=== PATIENT | male | born 1985 | race Caucasian/White ===

== ENCOUNTER 2018-05-06 00:41 | Emergency (ER) | payer OTHER ==
[~2018-05-06] VITALS: Ht 177.8 cm; Wt 88.5 kg
[2018-05-06 02:11] VITALS: BP 128/78
== END 2018-05-06 02:12 | disposition home or self-care (01) ==
LOC: M.ERS 00:41
DX: S91.011A Laceration without foreign body, right ankle, initial encounter (principal); Z88.0 Allergy status to penicillin; Z88.8 Allergy status to other drugs, medicaments and biological substances; W45.8XXA Other foreign body or object entering through skin, initial encounter; Y93.89 Activity, other specified; Y92.89 Other specified places as the place of occurrence of the external cause; Y99.8 Other external cause status

== ENCOUNTER 2019-03-24 21:35 | Emergency (ER) | payer OTHER ==
[~2019-03-24] VITALS: Ht 177.8 cm; Wt 93.0 kg
[2019-03-24] MEDS ORDERED: ZPAK PO (22:00)
[2019-03-24] MEDS ORDERED: PROMETHAZINE V120 ML PO (22:00)
[2019-03-24] MEDS ORDERED: TESSALON PERLE100 MG PO (22:00)
[2019-03-24] MEDS ORDERED: ACETAMINOPHEN-1 EAC1 PO (22:00)
[2019-03-24 22:13] VITALS: BP 117/69
== END 2019-03-24 22:16 | disposition home or self-care (01) ==
LOC: M.ERS 21:35
DX: J20.9 Acute bronchitis, unspecified (principal); Z88.0 Allergy status to penicillin; Z88.1 Allergy status to other antibiotic agents; Z88.8 Allergy status to other drugs, medicaments and biological substances

== ENCOUNTER 2019-05-12 13:26 | Emergency (ER) | payer OTHER ==
[~2019-05-12] VITALS: Ht 180.3 cm; Wt 93.0 kg
[~2019-05-12 13:26] MED LIST: ACETAMINOPHEN-1 EAC1 PO; PROMETHAZINE V120 ML PO; TESSALON PERLE100 MG PO; ZPAK PO
[2019-05-12] MEDS ORDERED: NORCO 5-325 TA1 EAC1 PO (14:50)
[2019-05-12 15:02] VITALS: BP 116/85
== END 2019-05-12 15:00 | disposition home or self-care (01) ==
LOC: M.ERS 13:26
DX: S20.211A Contusion of right front wall of thorax, initial encounter (principal); Z98.890 Other specified postprocedural states; Z88.1 Allergy status to other antibiotic agents; Z88.0 Allergy status to penicillin; W22.8XXA Striking against or struck by other objects, initial encounter; Y93.89 Activity, other specified; Y92.89 Other specified places as the place of occurrence of the external cause; Y99.8 Other external cause status